=== PATIENT | female | born 1970 | race Caucasian/White ===

== ENCOUNTER 2020-05-23 14:08 | Emergency (ER) | payer OTHER ==
[2020-05-23 14:20] VITALS: BMI 26.2
[2020-05-23] MEDS ORDERED: SODIUM CHLORIDE 1,000 ML IV STA (14:47)
[2020-05-23] MEDS ORDERED: ONDANSETRON 4 MG/2 ML VIAL IVPUSH ONE (14:47)
[2020-05-23] MEDS ORDERED: ACETAMINOPHEN INJECTION 100 ML IVPB ONE (15:05)
[2020-05-23] MEDS ORDERED: ACETAMINOPHEN 1000 MG/100 ML VIAL (NON FORMULARY) IVPB ONE (15:06)
[2020-05-23 15:09] LABS: BASO % 0.5 % (0-2.0); EOS % 0.2 % (0-4.5); HEMATOCRIT 36.4 % (32.4-45.2); HEMOGLOBIN 12.1 GM/dL (10.7-15.3); LYMPH % 19.5 % (8-40); MCH 29.2 pg (25.7-33.7); MCHC 33.3 g/dl (32.0-36.0); MEAN CELL VOLUME 87.8 fl (80-96); MEAN PLT VOLUME 9.3 fl (7.5-11.1); MONO % 7.9 % (3.8-10.2); NEUT % 71.9 % (42.8-82.8); PLATELET COUNT 333 K/MM3 (134-434); RBC 4.14 M/mm3 (3.60-5.2); RDW 14.5 % (11.6-15.6); WHITE BLOOD COUNT 5.5 K/mm3 (4.0-10.0)
--- NOTE | 2020-05-23 15:21 | PDOC ---
History of Present Illness - General Chief Complaint: Pain Stated Complaint: ABD PAIN Time Seen by Provider: 05/23/20 14:46 History Source: Patient Exam Limitations: No Limitations - History of Present Illness Travel History: No Initial Comments: 05/23/20 16:12 49-year-old female presents to ED with complaints of nausea, lower abdominal cramping, weakness, and subjective chills. Patient states with her PCP [address] Celaya who placed on Flagyl for some infection but unable to recall. Patient states symptoms have not improved and decided come to the ER today since she is also traveling to [facility] tomorrow due to her father who sustained an IL. Patient has no other complaints at this time including rash, vaginal discharge, urinary complaints, bowel changes, recent illness, recent travel. Timing/Duration: reports: constant Quality: reports: mild, cramping Abdominal Pain Onset Location: reports: epigastric, periumbilical Pain Radiation: reports: no radiation Activities at Onset: reports: none Aggravating Factors: improves with: None Alleviating Factors: improves with: None Past History - Travel History Traveled outside of the country in the last 30 days: No Close contact w/someone who was outside of country & ill: No - Medical History Allergies/Adverse Reactions: Allergies Allergy/AdvReac Type Severity Reaction Status Date / Time No Known Allergies Allergy Verified 05/23/20 14:19 Home Medications: Ambulatory Orders Levothyroxine [Synthroid -] 25 mcg PO DAILY 05/23/20 Ondansetron HCl [Zofran] 4 mg PO TID PRN #12 tablet 05/23/20 COPD: No - Reproductive History Is Patient Now?: No - Psycho-Social/Smoking History Patient Lives Alone: No Lives with/in: spouse/SO Smoking History: Never smoked Review of Systems - Review of Systems Able to Perform ROS?: No Is the patient limited Turkmen proficient: No Constitutional: Yes: Fever HEENTM: No: Symptoms Reported Respiratory: No: Symptoms reported Cardiac (ROS): No: Symptoms Reported ABD/GI: Yes: Abdominal Distended, Poor Appetite, Abdominal cramping. No: Constipated, Diarrhea, Poor Fluid Intake, Vomiting : No: Symptoms Reported Musculoskeletal: No: Symptoms Reported Integumentary: No: Symptoms Reported Neurological: Yes: Weakness Hematologic/Lymphatic: No: Symptoms Reported *Physical Exam - Vital Signs Last Vital Signs Temp Pulse Resp BP Pulse Ox 98 F 77 18 125/74 100 05/23/20 14:12 05/23/20 14:12 05/23/20 14:12 05/23/20 14:12 05/23/20 14:12 - Physical Exam General Appearance: Yes: Nourished, Appropriately Dressed. No: Apparent Distress HEENT: negative: Pale Conjunctivae Neck: positive: Normal Thyroid, Supple Respiratory/Chest: positive: Lungs Clear, Normal Breath Sounds. negative: Respiratory Distress, Accessory Muscle Use Cardiovascular: positive: Regular Rhythm, Regular Rate. negative: Murmur Vascular Pulses: Dorsalis-Pedis (R): 2+, Doralis-Pedis (L): 2+ Gastrointestinal/Abdominal: positive: Soft, Tenderness (midsuprapubic) Musculoskeletal: negative: CVA Tenderness Extremity: positive: Normal Inspection Integumentary: positive: Normal Color, Warm, Moist Neurologic: positive: Fully Oriented, Motor Strength 5/5 ED Treatment Course - LABORATORY CBC & Chemistry Diagram: 05/23/20 14:50 05/23/20 14:50 Medical Decision Making - Medical Decision Making 05/23/20 16:17 Chief complaint: Pain showed abdominal pain, nausea and weakness with subjective fever for the past 4 days. Patient started on Flagyl 2 days ago with no improvement. Exam: Patient with normal vital signs reviewed tenderness on exam. Plan: Labs, urine, IV fluids, Zofran, IV Tylenol COVID testing and reevaluation 05/23/20 17:03 Laboratory Tests 05/23/20 05/23/20 05/23/20 14:50 14:50 15:43 WBC 5.5 Hgb 12.1 Hct 36.4 Neutrophils % 71.9 Magnesium 2.2 Creatine Kinase 97 Troponin I < 0.02 Lipase 111 Urine Ketones Trace H Urine Nitrite Negative Urine Bilirubin Negative Urine HCG, Qual Negative 05/23/20 18:03 Laboratory Tests 05/23/20 05/23/20 05/23/20 14:50 14:50 15:00 WBC 5.5 Hgb 12.1 Hct 36.4 Absolute Neuts (auto) 4.0 Sodium 140 Potassium 3.5 Chloride 106 Anion Gap 10 BUN 12.7 Creatinine 0.8 Est GFR (CKD-EPI)AfAm 100.33 Random Glucose 93 Calcium 9.1 Magnesium 2.2 Total Bilirubin 0.9 AST 14 L ALT 17 Alkaline Phosphatase 57 Creatine Kinase 97 Troponin I < 0.02 Total Protein 7.8 Albumin 4.1 Lipase 111 Urine Ketones Urine Blood Urine Bilirubin Ur Leukocyte Esterase Urine HCG, Qual COVID-19 (GIORGIO) Pending 05/23/20 15:43 WBC Hgb Hct Absolute Neuts (auto) Sodium Potassium Chloride Anion Gap BUN Creatinine Est GFR (CKD-EPI)AfAm Random Glucose Calcium Magnesium Total Bilirubin AST ALT Alkaline Phosphatase Creatine Kinase Troponin I Total Protein Albumin Lipase Urine Ketones Trace H Urine Blood Negative Urine Bilirubin Negative Ur Leukocyte Esterase Negative Urine HCG, Qual Negative COVID-19 (GIORGIO) She states feeling much better. Patient will have her vitals week checked and discharge home with Zofran and told to hold the Flagyl until otherwise indicated. Patient be notified tomorrow COVID test results. 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 Discharge - Discharge Information Problems reviewed: Yes Clinical Impression/Diagnosis: Abdominal pain Condition: Improved Disposition: HOME - Additional Discharge Information Prescriptions: Ondansetron HCl [Zofran] 4 mg PO TID PRN #12 tablet PRN Reason: Nausea And/Or Vomiting - Follow up/Referral Referrals: Alma Levine MD [Primary Care Provider] - - Patient Discharge Instructions Patient Printed Discharge Instructions: DI for Abdominal Pain-Adult Additional Instructions: Follow a bland diet today avoiding spicy greasy and fried foods today sticking with rices, potatoes, broth and fluids take Zofran as needed for nausea You will be notified tomorrow call for test results - Post Discharge Activity
[2020-05-23 15:29] LABS: LIPASE 111 U/L (73-393); MAGNESIUM 2.2 mg/dL (1.8-2.4)
[2020-05-23 15:52] LABS: URINE APPEARANCE CLEAR; URINE BILIRUBIN NEGATIVE (NEGATIVE); URINE COLOR YELLOW; URINE GLUCOSE (UA) NEGATIVE (NEGATIVE); URINE KETONE TRACE (NEGATIVE); URINE LEUK ESTERASE NEGATIVE (NEGATIVE); URINE NITRITE NEGATIVE (NEGATIVE); URINE PROTEIN NEGATIVE (NEGATIVE); URINE UROBILINOGEN 0.2 mg/dL (0.2-1.0)
[2020-05-23 15:55] LABS: HCG,QUALITATIVE URINE Negative
[2020-05-23 17:47] LABS: ALBUMIN 4.1 g/dl (3.4-5.0); ALK PHOS 57 U/L (45-117); ANION GAP 10 MMOL/L (8-16); BILIRUBIN,TOTAL 0.9 mg/dL (0.2-1); BLOOD UREA NITROGEN 12.7 mg/dL (7-18); CALCIUM 9.1 mg/dL (8.5-10.1); CHLORIDE 106 mmol/L (98-107); CO2 24 mmol/L (21-32); CREATININE 0.8 mg/dL (0.55-1.3); GLUCOSE,RANDOM 93 mg/dL (74-106); POTASSIUM 3.5 mmol/L (3.5-5.1); SGOT/AST 14 U/L (15-37); SGPT/ALT 17 U/L (13-61); SODIUM 140 mmol/L (136-145); TOT PROT 7.8 g/dl (6.4-8.2)
[2020-05-23 18:11] VITALS: BP 120/76; PULSE 64; TEMP 98.4
== END 2020-05-23 18:13 | disposition home or self-care (01) ==
LOC: JER 14:08
PROC: 3E0333Z Introduction of Anti-inflammatory into Peripheral Vein, Percutaneous Approach (ICD-10-PCS; principal; 2020-05-23)
PROC: 3E033GC Introduction of Other Therapeutic Substance into Peripheral Vein, Percutaneous Approach (ICD-10-PCS; 2020-05-23)
PROC: 3E0337Z Introduction of Electrolytic and Water Balance Substance into Peripheral Vein, Percutaneous Approach (ICD-10-PCS; 2020-05-23)
DX: R10.9 Unspecified abdominal pain (principal)
CPT/HCPCS: 36415; 80053; 81003; 82550; 83690; 83735; 84484; 84703; 85025; 87086; 99284-25; J0131; U0003

== ENCOUNTER 2021-06-29 07:55 | Emergency (ER) | payer OTHER ==
[2021-06-29 08:16] VITALS: TEMP 97.9; BMI 26.6
[2021-06-29] MEDS ORDERED: SODIUM CHLORIDE 0.9% 500 ML INFUS.BAG IV ONE (08:51)
[2021-06-29] MEDS ORDERED: METOCLOPRAMIDE HCL INJECTION 10 MG/2 ML VIAL IVPUSH ONE (08:51)
[2021-06-29] MEDS ORDERED: ACETAMINOPHEN 1000 MG/100 ML VIAL (NON FORMULARY) IVPB ONE (08:51)
[2021-06-29] MEDS ORDERED: ACETAMINOPHEN INJECTION 100 ML IVPB ONE (09:16)
[2021-06-29] MEDS ORDERED: METOCLOPRAMIDE HCL INJECTION 10 MG/2 ML VIAL ONE (09:16)
[2021-06-29 10:15] LABS: BASO % 0.4 % (0-2.0); EOS % 0.4 % (0-4.5); HEMATOCRIT 37.4 % (32.4-45.2); HEMOGLOBIN 12.8 GM/dL (10.7-15.3); LYMPH % 14.7 % (8-40); MCH 29.9 pg (25.7-33.7); MCHC 34.2 g/dl (32.0-36.0); MEAN CELL VOLUME 87.7 fl (80-96); MEAN PLT VOLUME 9.5 fl (7.5-11.1); MONO % 5.7 % (3.8-10.2); NEUT % 78.8 % (42.8-82.8); PLATELET COUNT 363 10^3/uL (134-434); RBC 4.27 M/mm3 (3.60-5.2); RDW 14.5 % (11.6-15.6); WHITE BLOOD COUNT 5.5 K/mm3 (4.0-10.0)
[2021-06-29 10:24] LABS: CHLORIDE 105 mmol/L (98-107); SODIUM 139 mmol/L (136-145)
[2021-06-29 10:26] LABS: ALBUMIN 4.1 g/dl (3.4-5.0); ANION GAP 6 MMOL/L (8-16); CALCIUM 9.4 mg/dL (8.5-10.1); CO2 28 mmol/L (21-32); GLUCOSE,RANDOM 100 mg/dL (74-106)
[2021-06-29 10:29] LABS: SGOT/AST 13 U/L (15-37); SGPT/ALT 21 U/L (13-61)
[2021-06-29 10:30] LABS: CREATININE 0.7 mg/dL (0.55-1.3)
[2021-06-29 10:31] LABS: BILIRUBIN,TOTAL 0.8 mg/dL (0.2-1); TOT PROT 8.1 g/dl (6.4-8.2)
[2021-06-29 10:32] LABS: ALK PHOS 64 U/L (45-117)
[2021-06-29 12:09] LABS: EPI CELLS 3 /uL (0-25.1); HYALINE CASTS 0 /uL (0-3.1); PH,URINE 7.5 (5.0-8.0); URINE APPEARANCE CLEAR; URINE BACTERIA 26 /uL (0-1359); URINE BILIRUBIN NEGATIVE (NEGATIVE); URINE COLOR YELLOW; URINE GLUCOSE (UA) NEGATIVE (NEGATIVE); URINE KETONE NEGATIVE (NEGATIVE); URINE LEUK ESTERASE TRACE (NEGATIVE); URINE NITRITE NEGATIVE (NEGATIVE); URINE PROTEIN NEGATIVE (NEGATIVE); URINE RBC 13 /uL (0-23.9); URINE UROBILINOGEN 0.2 mg/dL (0.2-1.0); URINE WBC 3 /uL (0-25.8)
[2021-06-29 14:33] VITALS: BP 125/78; PULSE 82
== END 2021-06-29 14:34 | disposition home or self-care (01) ==
LOC: JER 07:55
PROC: 3E0333Z Introduction of Anti-inflammatory into Peripheral Vein, Percutaneous Approach (ICD-10-PCS; principal; 2021-06-29)
PROC: 3E033GC Introduction of Other Therapeutic Substance into Peripheral Vein, Percutaneous Approach (ICD-10-PCS; 2021-06-29)
DX: R51.9 Headache, unspecified (principal); R11.2 Nausea with vomiting, unspecified; R10.32 Left lower quadrant pain
CPT/HCPCS: 36415; 70450-TC; 80053; 81003; 82550; 84484; 84703; 85025; 87086; 93005; 93010; 96374; 96375; 99285-25; C9803; J0131; U0003; U0005

== ENCOUNTER 2023-08-03 19:20 | Emergency (ER) | payer OTHER ==
[2023-08-03 19:29] VITALS: BMI 23.8
[2023-08-03] MEDS ORDERED: LACTATED RINGERS SOLUTION 1000 ML INFUS.BAG IV ONE (20:37)
[2023-08-03] MEDS ORDERED: FAMOTIDINE 20 MG/50 ML IVPB 20 MG/50 ML MG IVPB ONE ×2 (20:58→21:08)
[2023-08-03] MEDS ORDERED: ACETAMINOPHEN 1000 MG/100 ML BAG IVPB ONE (20:58)
[2023-08-03] MEDS ORDERED: MAG HYDROX/AL HYDROX/SIMETH 30 ML UNIT-DOSE CUP PO ONE (20:58)
[2023-08-03] MEDS ORDERED: ACETAMINOPHEN INJECTION 100 ML IVPB ONE (21:07)
[2023-08-03] MEDS ORDERED: MAG HYDROX/AL HYDROX/SIMETH 30 ML UNIT-DOSE CUP ONE (21:08)
[2023-08-03 21:31] VITALS: BP 112/76; PULSE 58; RESP 20; TEMP 98.5
[2023-08-03 21:33] LABS: BASO % 0.4 % (0-2.0); EOS % 0.2 % (0-4.5); HEMOGLOBIN 12.5 GM/dL (10.7-15.3); LYMPH % 20.4 % (8-40); MCH 31.2 pg (25.7-33.7); MCHC 33.9 g/dl (32.0-36.0); MEAN PLT VOLUME 8.7 fl (7.5-11.1); MONO % 5.1 % (3.8-10.2); NEUT % 73.9 % (42.8-82.8); PLATELET COUNT 379 10^3/uL (134-434); RBC 4.02 M/mm3 (3.60-5.2); RDW 13.4 % (11.6-15.6); WHITE BLOOD COUNT 6.5 K/mm3 (4.0-10.0)
[2023-08-03 22:02] LABS: POTASSIUM 3.7 mmol/L (3.5-5.1)
[2023-08-03 22:04] LABS: ALBUMIN 3.9 g/dl (3.4-5.0); BLOOD UREA NITROGEN 17.7 mg/dL (7-18); CALCIUM 8.9 mg/dL (8.5-10.1)
[2023-08-03 22:05] LABS: MAGNESIUM 2.1 mg/dL (1.8-2.4)
[2023-08-03 22:07] LABS: CREATININE 0.6 mg/dL (0.55-1.3)
[2023-08-03 22:09] LABS: TOT PROT 7.4 g/dl (6.4-8.2)
[2023-08-03 22:31] LABS: BILIRUBIN,TOTAL 0.8 mg/dL (0.2-1)
== END 2023-08-03 22:45 | disposition home or self-care (01) ==
LOC: JER 19:20
PROC: 3E033GC Introduction of Other Therapeutic Substance into Peripheral Vein, Percutaneous Approach (ICD-10-PCS; principal; 2023-08-03)
PROC: 3E033GC Introduction of Other Therapeutic Substance into Peripheral Vein, Percutaneous Approach (ICD-10-PCS; 2023-08-03)
DX: R00.2 Palpitations (principal)
CPT/HCPCS: 36415; 80053; 83735; 84439; 84443; 84484; 85025; 93005; 93010